=== PATIENT | female | born 1995 | race Two or more races ===

== ENCOUNTER 2017-07-06 13:33 | Emergency (ER) | payer SELFPAY ==
[~2017-07-06] VITALS: Ht 154.9 cm; Wt 59.9 kg
[2017-07-06] MEDS ORDERED: LIDOCAINE HCL/PF 1% 30 ML VIAL TP ONE (14:00)
[2017-07-06] MEDS ORDERED: LIDOCAINE HCL/PF 2 % 5ML SDV 5 ML VIAL ONE (14:02)
[2017-07-06 14:54] VITALS: BP 121/75
--- NOTE | 2017-07-06 14:55 | NUR ---
PT REC'D TO ER C/O PAIN ABCESS I AND I DONE PT TOLERATED WELLL VSS AWAITING EVALUATION BY ER PROVIDER. Patient discharged to home in stable condition. Written and verbal after care instructions given. Patient verbalizes understanding of instruction.
== END 2017-07-06 14:56 | disposition home or self-care (01) ==
LOC: ER 13:40
DX: L05.01 Pilonidal cyst with abscess (principal)
CPT/HCPCS: 10080; 99284; A4606; A6402; A6407; J3490 ×2; Z7610

== ENCOUNTER 2017-07-08 13:03 | Emergency (ER) | payer SELFPAY ==
[~2017-07-08] VITALS: Ht 154.9 cm; Wt 59.0 kg
[2017-07-08 13:08] VITALS: BP 109/73
== END 2017-07-08 14:18 | disposition home or self-care (01) ==
LOC: ER 13:07
DX: Z48.01 Encounter for change or removal of surgical wound dressing (principal); L05.01 Pilonidal cyst with abscess
CPT/HCPCS: A4606; Z7610